=== PATIENT | female | born 1990 ===

== ENCOUNTER 2016-03-09 00:38 | Inpatient (IN) ==
[2016-03-09] MEDS ORDERED: LIDOCAINE 1% 50 ML VIAL ONE (00:47)
[2016-03-09] MEDS ORDERED: METHYLERGONOVINE 0.2 MG/1 ML AMP ONE (00:48)
[2016-03-09] MEDS ORDERED: MEPERIDINE 50 MG/1 ML VIAL ONE (00:48)
[2016-03-09] MEDS ORDERED: miSOPROStol 200 MCG TABLET ONE (00:48)
[2016-03-09] MEDS ORDERED: ONDANSETRON 4 MG/2 ML VIAL ONE (00:48)
[2016-03-09] MEDS ORDERED: OXYTOCIN/LR 20 UNIT/1,000 ML BAG IV ONE ×4 (00:48→05:23)
[2016-03-09] MEDS ORDERED: ONDANSETRON 4 MG/2 ML VIAL IV PRN ×3 (00:53→19:20)
[2016-03-09] MEDS ORDERED: OXYTOCIN/LR 30 UNIT/1,000 ML BAG IV ONE (00:56)
[2016-03-09] MEDS ORDERED: MEPERIDINE 50 MG/1 ML VIAL IV PRN (00:57)
[2016-03-09] MEDS ORDERED: LACTATED RINGERS 1,000 ML IV SCH (01:00)
--- NOTE | 2016-03-09 01:29 | History & Physical Report ---
Assessment and Plan (1) Active labor at term Status: Acute Assessment and plan: 38 weeks gestation in active labor, anticipate vaginal . Patient presented to labor and delivery 8 and 9 cm dilated 100% bulging bag at a 0 to + 1 station. Current Visit: Yes History of Present Illness Chief complaint: active labor History of present illness: Ms. Ohara is a 25 year old female 3 para 2 presented to labor and delivery in active labor. This patient was examined on admission she was found to be 8+ centimeters dilated. With a bulging bag of water. Fetus was active, heart tones are category 1, EDC 03/18/2016. Home Medications Medication Instructions Recorded Confirmed Type Vit #108/Iron/FA 1 mg PO DAILY 10/30/15 10/30/15 History [ One Tablet] Allergies Allergy/AdvReac Type Severity Reaction Status Date / Time No Known Allergies Allergy Verified 10/30/15 10:46 Medical,Surgical,& Family Hx - Social History Smoking Status: Never smoker Exam - Constitutional General appearance: mild distress - Head Head exam: Present: normal inspection - Eye Eye exam: Present: EOMI Pupils: Present: NGOZI - ENT ENT exam: Present: normal exam - Neck Neck exam: Present: normal inspection - Respiratory Respiratory exam: Present: clear to auscultation bilaterally - Cardiovascular Cardiovascular exam: Present: regular rate and rhythm - GI/Abdominal GI/Abdominal exam: Present: normal bowel sounds - Extremities Exam Extremities exam: Present: normal inspection - Back Exam Back exam: Present: normal inspection - Neurological Exam Neurological exam: Present: alert, oriented X3 - Psychiatric Psychiatric exam: Present: normal affect - Skin Skin exam: Present: normal color Quality Measures - VTE Contraindication to Pharmacological VTE Prophylaxis: Clinical assessment deems Pt at low risk, no prophalaxis needed
--- NOTE | 2016-03-09 01:32 | Event Note ---
Stage I Patient arrived to labor and delivery at 1240 a.m. IV fluids heart tones category 1 External monitoring Notified at 1245 of this patient's arrival Stage II Completely dilated at approximately 1255 Delivery at 1 a.m. Female , Apgars 9 at 1 minute 9 at 5 minutes weight 5 lbs. 11 oz. Cord blood and cord gas was obtained Stage III Spontaneous delivery of the placenta 3 cord vessels noted Blood loss less than 200 mL Small first degree laceration at the introitus repaired with #2-0 Vicryl Mother and stable
[2016-03-09] MEDS ORDERED: HYDROCORTISONE 2.5% RECTAL CREAM 30 GM TUBE TOP PRN (01:33)
[2016-03-09] MEDS ORDERED: RHO(D) IMMUNE GLOBULIN 300 MCG SYRINGE IM ONE (01:33)
[2016-03-09] MEDS ORDERED: DIPH/TET/ACEL PERT BOOSTER VACCINE 0.5 ML VIAL IM ONE (01:33)
[2016-03-09] MEDS ORDERED: oxyCODONE/ACETAMINOPHEN 5-325 MG TABLET PO PRN ×2 (01:33)
[2016-03-09] MEDS ORDERED: BISACODYL 10 MG SUPP RECTAL PRN (01:33)
[2016-03-09] MEDS ORDERED: ACETAMINOPHEN 325 MG TABLET PO PRN (01:33)
[2016-03-09] MEDS ORDERED: BENZOCAINE 20%/MENTHOL 0.5% SPRAY 56 GM CAN TOP PRN (01:33)
[2016-03-09] MEDS ORDERED: WITCH HAZEL PADS 100/JAR TOP PRN (01:33)
[2016-03-09] MEDS ORDERED: LANOLIN 50% CREAM 0.3 OZ TUBE TOP PRN (01:33)
[2016-03-09] MEDS ORDERED: MEASLES/MUMPS/RUBELLA VACCINE 0.5 ML VIAL SUBCUT ONE (01:33)
[2016-03-09 01:44] LABS: Cord Arterial Blood HCO3 17.7 MMOL/L
[2016-03-09 01:45] LABS: Cord Venous Blood HCO3 22.6 MMOL/L; Cord Venous Blood PCO2 50.3 MMHG
[2016-03-09 01:58] LABS: Basophils % 0.2 % (0.0-0.8); Eosinophils # 0.1 10*3/uL (0.0-0.87); Eosinophils % 0.6 % (0.00-10.9); Hematocrit 35.5 VOL% (35.7-47.0); Hemoglobin 12.8 GM/DL (12.0-16.0); Immature Granulocytes % 1.1 %; Immature Granulocytes Absolute 0.12 #; Lymphocytes # 1.8 10*3/uL (1.4-4.0); Lymphocytes % 16.1 % (21.3-54.2); Mean Corpuscular HGB Conc 36.1 GM/DL (32-36); Mean Corpuscular Hemoglobin 34 PG (27-34); Mean Corpuscular Volume 94.7 FL (87-102); Mean Platelet Volume 9.4 FL (9.6-12.0); Monocytes # 0.9 10*3/uL (0.11-0.8); Monocytes % 8.3 % (1.7-12.7); Neutrophils # 8.1 10*3/uL (1.4-7.4); Neutrophils % 73.7 % (38.7-73.9); Platelet Count 194 10*3/uL (130-400); Red Blood Count 3.75 10*6/uL (3.8-5.5); Red Cell Distribution Width 13.4 % (9.3-17.3); White Blood Count 10.9 10*3/uL (4.5-13.71)
[2016-03-09 02:03] LABS: Albumin 2.6 G/DL (3.4-5.0); Bilirubin,Total 0.5 MG/DL (0.2-1.0); Calcium 7.6 MG/DL (8.5-10.1); Osmolality,Calculated 280.3 MOS/KG (273-304); Potassium 3.6 MMOL/L (3.5-5.1); Total Protein 6.3 G/DL (6.4-8.3)
[2016-03-09 05:54] LABS: Basophils % 0.1 % (0.0-0.8); Eosinophils % 0.1 % (0.00-10.9); Hematocrit 37.6 VOL% (35.7-47.0); Hemoglobin 13.4 GM/DL (12.0-16.0); Immature Granulocytes % 0.7 %; Immature Granulocytes Absolute 0.09 #; Lymphocytes # 1.1 10*3/uL (1.4-4.0); Lymphocytes % 8.1 % (21.3-54.2); Mean Corpuscular HGB Conc 35.6 GM/DL (32-36); Mean Corpuscular Hemoglobin 33 PG (27-34); Mean Corpuscular Volume 92.6 FL (87-102); Mean Platelet Volume 9.4 FL (9.6-12.0); Monocytes # 0.9 10*3/uL (0.11-0.8); Monocytes % 6.5 % (1.7-12.7); Neutrophils # 11.6 10*3/uL (1.4-7.4); Neutrophils % 84.5 % (38.7-73.9); Platelet Count 219 10*3/uL (130-400); Red Blood Count 4.06 10*6/uL (3.8-5.5); Red Cell Distribution Width 13.4 % (9.3-17.3); White Blood Count 13.7 10*3/uL (4.5-13.71)
[2016-03-09] MEDS: DOCUSATE SODIUM 100 MG CAPSULE PO SCH ×2 (09:50→21:12)
[2016-03-09] MEDS: IBUPROFEN 800 MG TABLET PO PRN ×2 (09:53→17:45)
[2016-03-10] MEDS: DOCUSATE SODIUM 100 MG CAPSULE PO SCH ×2 (08:56→21:58)
[2016-03-10] MEDS: IBUPROFEN 800 MG TABLET PO PRN (13:10)
[2016-03-11] MEDS: IBUPROFEN 800 MG TABLET PO PRN ×2 (03:41→10:00)
[2016-03-11 08:45] VITALS: BP 99/59
[2016-03-11] MEDS: DOCUSATE SODIUM 100 MG CAPSULE PO SCH (10:00)
--- NOTE | 2016-07-30 07:18 | Discharge Summary ---
This patient was admitted in active labor approximately 8 to 9 cm dilated, 100% effaced and bulging bag of water. She subsequently progressed in labor on 03/08 at approximately 2100 hours and delivered on 03/09/2016 at 12:40 a.m. Total time in labor was approximately 3 hours. She delivered a viable with no lacerations, a female 5 pounds and 11 ounces. This patient had no complications during her hospitalization. She remained in hospital for two days and she was subsequently discharged on 03/11/2016 in stable condition. This patient will follow up in on our office in approximately in six weeks. ISAIAS
== END 2016-03-11 12:05 | disposition home or self-care (01) | DRG 775 ==
LOC: N.LDOUT 00:38 → N.LD 00:47 → N.OB 11:15
PROVIDERS: ADMIT Obstetrics & Gynecology; ATTEND Obstetrics & Gynecology